=== PATIENT | male | born 1965 | race Caucasian/White ===

== ENCOUNTER 2019-09-13 18:44 | Inpatient (IN) | payer OTHER, MEDICAID ==
[~2019-09-13] VITALS: Ht 182.9 cm; Wt 124.7 kg
--- NOTE | 2019-09-13 18:44 | NUR ---
Patient BIBA ALS, transferred to bed 9. RN evaluating patient at bedside.
[2019-09-13 18:50] VITALS: BP 127/87
--- NOTE | 2019-09-13 18:57 | NUR ---
RADIOLOGY AT BEDSIDE
[2019-09-13] MEDS ORDERED: NITROGLYCERIN 0.4 MG TAB SL ONE (19:30)
[2019-09-13] MEDS ORDERED: ASPIRIN 325 MG TAB PO ONE (19:30)
--- NOTE | 2019-09-13 19:39 | NUR ---
PT REFUSED NITRO AND ASPIRIN. STATES "I'M ON A 9/10 PAIN AND YOU'RE GOING TO GIVE ME THAT? I DONT FUCKING WANT IT." ERMD MADE AWARE.
--- NOTE | 2019-09-13 19:40 | NUR ---
54 Y/O MALE C/O CHEST PAIN x FEW HRS. RATES PAIN 8/10 AND DESCRIBES IT STINGING, PRESSURE AND IS NONRADIATING. VSS. NO SOB, NO DIAPHORESIS. a&OX4. NO EDEMA PRESENT. CAP REFILL < 3. ALLERGIES: PERMETHRIN, NUCLEAR MED. PMH: HTN, CHF, ANGIOGRAM.
[2019-09-13 20:36] LABS: BASOPHILS # (AUTO) 0.1 K/uL (0.00-0.22); BASOPHILS % (AUTO) 1.2 % (0.0-2.0); EOSINOPHILS # (AUTO) 0.1 K/uL (0-0.4); HEMATOCRIT 38.3 % (36-52); HEMOGLOBIN 12.7 g/dL (12.0-18.0); LYMPHOCYTES # (AUTO) 2.6 K/uL (2.0-11.5); LYMPHOCYTES % (AUTO) 40.8 % (20.5-51.1); MEAN CORPUSCULAR HEMOGLOBIN 30 pg (27-31); MEAN CORPUSCULAR HGB CONC 33 g/dL (33-37); MEAN CORPUSCULAR VOLUME 90.9 fL (80-94); MONOCYTES # (AUTO) 0.6 K/uL (0.8-1.0); MONOCYTES % (AUTO) 8.7 % (1.7-9.3); NEUTROPHILS % (AUTO) 47.3 % (42.2-75.2); PLATELET COUNT (AUTO) 347 K/uL (140-450); RED BLOOD CELL COUNT(AUTO) 4.22 MIL/uL (4.20-6.10); RED CELL DISTRIBUTION WIDTH 14.5 % (11.6-13.7); WHITE BLOOD COUNT (AUTO) 6.3 K/uL (4.8-10.8)
[2019-09-13] MEDS ORDERED: ONDANSETRON 4 MG/2 ML VIAL IVP ONE (20:45)
[2019-09-13] MEDS ORDERED: MORPHINE SULFATE 4 MG/ML SYR IVP ONE (20:45)
[2019-09-13 20:48] LABS: ALBUMIN 2.9 g/dL (3.4-5.0); ANION GAP 8.4 (8-16); CARBON DIOXIDE 31.2 mmol/L (21-32); CREATININE 0.8 mg/dL (0.6-1.3); POTASSIUM 3.6 mmol/L (3.5-5.1); TOTAL BILIRUBIN 0.2 mg/dL (0.0-1.0)
[2019-09-13 20:49] LABS: PROTHROMBIN TIME 10.6 secs (10.8-13.4)
--- NOTE | 2019-09-13 21:21 | NUR ---
PT AMBULATED TO BATHROOM. STEADY GAIT.
[2019-09-13] MEDS ORDERED: HYDROcodone/APAP 7.5/325 MG 1 TAB PO PRN (21:30)
[2019-09-13] MEDS ORDERED: ONDANSETRON 4 MG/2 ML VIAL IVP PRN (21:30)
[2019-09-13] MEDS ORDERED: ACETAMINOPHEN 325 MG TAB PO PRN (21:30)
[2019-09-13] MEDS ORDERED: DIVA500E1 PO (21:46)
[2019-09-13] MEDS ORDERED: TRAZ-343 PO (21:46)
[2019-09-13] MEDS ORDERED: ASPI81EC98 PO (21:46)
[2019-09-13] MEDS ORDERED: ATOR20TA PO (21:46)
[2019-09-13] MEDS ORDERED: LISI-420 PO (21:46)
[2019-09-13] MEDS ORDERED: ORE25 PO (21:46)
--- NOTE | 2019-09-13 22:10 | NUR ---
Patient will be admitted to care of DR. DOVER. Admited to TELE. Will go to room 111B. Belongings list completed. Report to MORA GUZMAN.
--- NOTE | 2019-09-13 22:10 | NUR ---
RECEIVED BEDSIDE REPORT FROM ED NURSE KIKE. PATIENT WAS BROUGHT INTO UNIT VIA GURNEY. PATIENT IS AMBULATORY. NO SOB OR DISTRESS NOTED. ON ROOM AIR. IV ACCESS ON LEFT HAND 24 GAUGE, PATENT, INTACT AND INFUSING WELL. SKIN IS INTACT. INITIAL ASSESSMENT DONE. INITIAL VITAL SIGNS TAKEN. MRSA SWAB DONE AND SENT TO LAB. PATIENT ORIENTED TO ROOM. BED IN LOW, BED LOCKED. SAFETY MEASURES IN PLACE. BELONGINGS LIST SIGNED. CALL LIGHT PLACED WITHIN PATIENT REACH. WILL CONTINUE TO MONITOR PATIENT.
[2019-09-13 23:04] LABS: FREE T4 (FREE THYROXINE) 0.93 ng/dL (0.76-1.46); PHOSPHORUS 4.4 mg/dL (2.5-4.9); THYROID STIMULATING HORMONE 2.15 uIU/mL (0.34-3.74)
[2019-09-13] MEDS: NACL 0.9% 1,000 ML IV SCH (23:15)
[2019-09-13 23:23] LABS: APPEARANCE,URINE CLEAR (CLEAR); BILIRUBIN,URINE NEGATIVE (NEGATIVE); BLOOD, URINE NEGATIVE (NEGATIVE); COLOR,URINE YELLOW (YELLOW); LEUKOCYTE ESTERASE ,URINE NEGATIVE (NEGATIVE); NITRITE, URINE NEGATIVE (NEGATIVE); UGLUCOSE NEGATIVE (NEGATIVE)
[2019-09-13 23:54] LABS: BARBITURATE, URINE NEGATIVE ng/ml (NEG <=200); BENZODIAZEPINE, URINE POSITIVE ng/mL (NEG <=200); CANNABINOID, URINE NEGATIVE ng/mL (NEG <=50); COCAINE, URINE NEGATIVE ng/mL (NEG <=300); OPIATE, URINE POSITIVE ng/mL (NEG <=2000); PHENCYCLIDINE SCREEN,URINE NEGATIVE ng/mL (NEG <=25)
[2019-09-14 00:15] VITALS: BP 112/81
--- NOTE | 2019-09-14 00:15 | NUR ---
VITALS TAKEN AT THIS TIME. VISIBLE CHEST RISE AND FALL NOTED. CALL LIGHT PLACED WITHIN PATIENT REACH. WILL CONTINUE TO MONITOR PATIENT.
--- NOTE | 2019-09-14 00:45 | NUR ---
PRN NORCO GIVEN PER PATIENT REQUEST FOR MODERATED PAIN. WILL CONTINUE TO MONITOR PATIENT.
[2019-09-14] MEDS ORDERED: HYDROcodone/APAP 10/325 MG 1 TAB TAB PO PRN (02:50)
--- NOTE | 2019-09-14 03:16 | NUR ---
ROUNDS DONE. VISIBLE CHEST RISE AND FALL NOTED. CALL LIGHT WITHIN PATIENT REACH. WILL CONTINUE TO MONITOR PATIENT.
--- NOTE | 2019-09-14 04:05 | NUR ---
VITALS TAKEN AT THIS TIME. NO SOB OR DISTRESS NOTED. CALL LIGHT WITHIN PATIENT REACH. WILL CONTINUE TO MONITOR PATIENT.
[2019-09-14 04:08] VITALS: BP 137/87
[2019-09-14] MEDS: HYDROcodone/APAP 10/325 MG 1 TAB TAB PO PRN ×2 (04:39→12:03)
--- NOTE | 2019-09-14 04:39 | NUR ---
PRN NORCO GIVEN AT THIS TIME FOR SEVERE PAIN PER PATIENT REQUEST. WILL CONTINUE TO MONITOR PATIENT.
[2019-09-14 06:12] LABS: BASOPHILS # (AUTO) 0.1 K/uL (0.00-0.22); EOSINOPHILS # (AUTO) 0.2 K/uL (0-0.4); HEMATOCRIT 36.8 % (36-52); HEMOGLOBIN 12.3 g/dL (12.0-18.0); LYMPHOCYTES # (AUTO) 2.7 K/uL (2.0-11.5); LYMPHOCYTES % (AUTO) 45.9 % (20.5-51.1); MEAN CORPUSCULAR HEMOGLOBIN 30 pg (27-31); MEAN CORPUSCULAR HGB CONC 34 g/dL (33-37); MEAN CORPUSCULAR VOLUME 90.6 fL (80-94); MONOCYTES # (AUTO) 0.5 K/uL (0.8-1.0); MONOCYTES % (AUTO) 8.7 % (1.7-9.3); NEUTROPHILS # (AUTO) 2.4 K/uL (1.8-7.7); NEUTROPHILS % (AUTO) 40.4 % (42.2-75.2); PLATELET COUNT (AUTO) 356 K/uL (140-450); RED BLOOD CELL COUNT(AUTO) 4.06 MIL/uL (4.20-6.10); WHITE BLOOD COUNT (AUTO) 5.9 K/uL (4.8-10.8)
--- NOTE | 2019-09-14 06:50 | NUR ---
PATIENT IN STABLE CONDITION. VISIBLE CHEST RISE AND FALL NOTED. CALL LIGHT WITHIN PATIENT REACH. WILL ENDORSE TO AM SHIFT NURSE FOR CONTINUITY OF CARE.
--- NOTE | 2019-09-14 07:05 | NUR ---
RECEIVED BEDSIDE REPORT FROM NIGHTSHIFT NURSE. PT RESTING IN BED. ABLE TO MAKE NEEDS KNOWN. RESPIRATIONS EVEN AND UNLABORED WITH NO SOB OR RESPIRATORY DISTRESS. SKIN WARM AND DRY TO TOUCH. IV SITE IN LEFT HAND 24G IS CLEAN, DRY, AND INTACT. SAFETY MEASURES IN PLACE. WILL CONTINUE TO MONITOR
[2019-09-14 07:17] LABS: CHOL/HDL RATIO 3.7 (1-4.5); MAGNESIUM 2.1 mg/dL (1.8-2.4)
[2019-09-14 07:26] LABS: ANION GAP 12.4 (8-16); CARBON DIOXIDE 27.3 mmol/L (21-32); CREATININE 0.9 mg/dL (0.6-1.3); POTASSIUM 3.7 mmol/L (3.5-5.1)
[2019-09-14] MEDS ORDERED: NITROGLYCERIN 0.4 MG TAB SL PRN (07:45)
[2019-09-14] MEDS: MORPHINE SULFATE 2 MG/ML SYR IVP PRN ×3 (07:54→20:05)
--- NOTE | 2019-09-14 07:54 | NUR ---
PT CALLED AND COMPLAINED OF SEVERE PAIN. PRN PAIN MEDICATION ADMINISTERED PRESCRIBED PER MD ORDER. MEDICATION EDUCATION PERFORMED. PT VERBALIZED UNDERSTANDING. SAFETY MEASURES IN PLACE. WILL CONTINUE TO MONITOR
[2019-09-14 08:00] VITALS: BP 135/87
[2019-09-14] MEDS: DOCUSATE SODIUM 100 MG GELCAP PO SCH ×2 (08:36→20:04)
[2019-09-14] MEDS: METOPROLOL 25 MG TAB PO SCH ×3 (08:36→21:54)
[2019-09-14] MEDS: ECOTRIN 81 MG TABEC PO SCH (08:36)
[2019-09-14] MEDS: HYDROCHLOROTHIAZIDE 25 MG TAB PO SCH (08:37)
[2019-09-14] MEDS: DIVALPROEX 500 MG TABEC PO SCH ×2 (08:38→21:55)
[2019-09-14] MEDS: LISINOPRIL 20 MG TAB PO SCH (08:38)
[2019-09-14] MEDS: ATORVASTATIN 20 MG TAB PO SCH (08:39)
--- NOTE | 2019-09-14 08:46 | NUR ---
ADMINISTERED SCHED MED PRESCRIBED PER MD ORDER. PT TOLERATED WELL. MEDICATION EDUCATION PERFORMED. PT VERBALIZED UNDERSTANDING. SAFETY MEASURES IN PLACE. WILL CONTINUE TO MONITOR
--- NOTE | 2019-09-14 08:48 | NUR ---
PATIENT HAS BEEN SCREENED AND CATEGORIZED MODERATE NUTRITION RISK. PATIENT WILL BE SEEN WITHIN 3-5 DAYS OF ADMISSION. 09/16/19 09/18/[address]
[2019-09-14] MEDS: NICOTINE TRANSD SYS 14 MG/24 HR PATCH TD SCH (09:00)
--- NOTE | 2019-09-14 11:57 | NUR ---
Drop Worker Note: Basic Screen: Yes High Risk DC Screen [place]: NICOLE Tom Tel: N/A Relationship: BROTHER Pre-Admission Living Arrangements: Lives with Other Other: ROOMMATES Prior ADL Independent Current Home Health Name/Tel: N/A Current DME/02 Name/Tel: N/A Current Hospice Name/Tel: N/A Current Dialysis Name/Tel: N/A Healthcare Decision Maker: Patient Advance Directive No Physician Orders for Life Sustaining Treatment Form No Patient/Family Have Educational Needs No Information Taught: Community Resources Person Taught: Patient Teaching Tools: Community Resources Verbal Factors Affecting Learning: None Participation Level: Active Evaluation: Verbalizes Understanding Needs Additional Education: No Discipline: Case Mgt/Social Svcs Tentative Discharge Plan/Destination: No Needs Identified Will require assistance post discharge: No Referred to Hair Colorist: No Tentative Discharge Plan Summary: Patient is a 54-year-old male admitted for chest pain. Patient has PMHX of CHF and hypertension. Patient was admitted from home where he lives with roommates. SW met with patient at bedside to verify demographics. Patient stated that he lives with roommates and is independent with all ADLs. Patient denied mental health history but reported methamphetamine use. SW provided patient with subtance abuse resources. Patient stated that he would arrange for rehabilitation. SW offered assistance but patient refused. Tentative discharge plan is for patient to return home and look into substance abuse rehab facilities. Signature: TARA Leal Date: Sep 14, 2019 Time: 11:42
[2019-09-14 12:00] VITALS: BP 119/64
--- NOTE | 2019-09-14 12:03 | NUR ---
PT CALLED AND COMPLAINED OF MODERATE PAIN. PRN PAIN MEDICATION ADMINISTERED PRESCRIBED PER MD ORDER. MEDICATION EDUCATION PERFORMED. PT VERBALIZED UNDERSTANDING. SAFETY MEASURES IN PLACE. WILL CONTINUE TO MONITOR
[2019-09-14] MEDS ORDERED: CALCIUM ACETATE 667 MG TAB PO SCH (13:15)
--- NOTE | 2019-09-14 13:15 | NUR ---
HOURLY ROUNDING. PT RESTING IN BED. ABLE TO MAKE NEEDS KNOWN. RESPIRATIONS EVEN AND UNLABORED WITH NO SOB OR RESPIRATORY DISTRESS. SKIN WARM AND DRY TO TOUCH. SAFETY MEASURES IN PLACE. WILL CONTINUE TO MONITOR
[2019-09-14] MEDS ORDERED: CRUSHER, PILL MC ONE (14:00)
--- NOTE | 2019-09-14 15:19 | NUR ---
ENDORSED AT BEDSIDE WITH DAYSHIFT NURSE RENE. PT RESTING IN BED. ABLE TO MAKE NEEDS KNOWN. RESPIRATIONS EVEN AND UNLABORED WITH NO SOB OR RESPIRATORY DISTRESS. SKIN WARM AND DRY TO TOUCH. SAFETY MEASURES IN PLACE. WILL CONTINUE TO MONITOR
--- NOTE | 2019-09-14 15:20 | NUR ---
RECEIVED PT. FROM DAY SHIFT NURSE, ABDULKADIR. PT. IS ALERT AND IN BED. IV ON THE LEFT HAND 24G NS TKO. PT. IS ON ROOM AIR WITH O2 STAT OF 97%. NO SIGNS OF DISTRESS NOTED. PT. IS AMBULATORY. CALL LIGHT WITHIN REACH. WILL CONTINUE TO MONITOR.
[2019-09-14 16:00] VITALS: BP 135/87
--- NOTE | 2019-09-14 19:20 | NUR ---
ENDORSED PT. TO VEGETABLE WASHER NURSE, TROY, FOR CONTINUITY OF CARE.
[2019-09-14 20:00] VITALS: BP 135/85
--- NOTE | 2019-09-14 20:05 | NUR ---
GIVEN COLACE AD MD ORDERED. PT C/O 02/27 PAIN, GIVEN MORPHINE MD ORDERED. PT TOLERATED WELL.
[2019-09-14] MEDS ORDERED: traZODone 50 MG TAB PO SCH (21:00)
[2019-09-14] MEDS: NACL 0.9% 1,000 ML IV SCH (21:55)
--- NOTE | 2019-09-14 22:22 | NUR ---
PT SLEEPING IN BED COMFORTABLY. NO ACUTE DISTRESS NOTED.
[2019-09-15] VITALS: BP 127/76
--- NOTE | 2019-09-15 00:05 | NUR ---
VS CHECKED, WITHIN PT'S BASELINE, WILL CONTINUE TO MONITOR.
[2019-09-15] MEDS: MORPHINE SULFATE 2 MG/ML SYR IVP PRN ×2 (02:32→09:55)
--- NOTE | 2019-09-15 02:32 | NUR ---
PT C/O 02/27 PAIN, GIVEN MORPHINE MD ORDERED. PT TOLERATED WELL. Addendum: 09/15/19 at 0332 by Sachin Duque RN SCANNER DID NOT WORK, PUT IT MANUALLY.
[2019-09-15 04:00] VITALS: BP 118/67
--- NOTE | 2019-09-15 04:04 | NUR ---
VS CHECKED, WITHIN PT'S BASELINE. WILL CONTINUE TO MONITOR.
--- NOTE | 2019-09-15 06:58 | NUR ---
PT IN STABLE CONDITION. WILL ENDORSE TO DAY SHIFT NURSE FOR CONTINUOUS CARE.
[2019-09-15 07:22] LABS: BASOPHILS # (AUTO) 0.1 K/uL (0.00-0.22); BASOPHILS % (AUTO) 0.8 % (0.0-2.0); EOSINOPHILS # (AUTO) 0.2 K/uL (0-0.4); EOSINOPHILS % (AUTO) 3.4 % (0.0-4.0); HEMOGLOBIN 12.6 g/dL (12.0-18.0); LYMPHOCYTES # (AUTO) 2.4 K/uL (2.0-11.5); LYMPHOCYTES % (AUTO) 35.3 % (20.5-51.1); MEAN CORPUSCULAR HEMOGLOBIN 30 pg (27-31); MEAN CORPUSCULAR HGB CONC 33 g/dL (33-37); MEAN CORPUSCULAR VOLUME 90.1 fL (80-94); MONOCYTES # (AUTO) 0.6 K/uL (0.8-1.0); MONOCYTES % (AUTO) 8.3 % (1.7-9.3); NEUTROPHILS # (AUTO) 3.6 K/uL (1.8-7.7); NEUTROPHILS % (AUTO) 52.2 % (42.2-75.2); PLATELET COUNT (AUTO) 334 K/uL (140-450); RED BLOOD CELL COUNT(AUTO) 4.22 MIL/uL (4.20-6.10); RED CELL DISTRIBUTION WIDTH 14.4 % (11.6-13.7); WHITE BLOOD COUNT (AUTO) 6.8 K/uL (4.8-10.8)
--- NOTE | 2019-09-15 07:25 | NUR ---
RECEIVED PT FROM HEALTHCARE LIAISON FOR CONTINUITY OF CARE. PT IS AAOX4, ABLE TO MAKE NEEDS KNOWN. IV ON THE LEFT HAND 24G NS TKO. PT IS RA SATING 95%. NO SIGNS OF DISTRESS NOTED. PT IS AMBULATORY. DISCUSSED POC WITH PT AND PT VERBALIZED UNDERSTANDING. SAFETY MEASURES IN PLACE. WILL ROUND FREQUENTLY THROUGHOUT THE SHIFT.
[2019-09-15 07:33] LABS: ANION GAP 8.9 (8-16); CARBON DIOXIDE 31.1 mmol/L (21-32); CREATININE 0.9 mg/dL (0.6-1.3)
[2019-09-15 07:39] LABS: MAGNESIUM 2.1 mg/dL (1.8-2.4); PHOSPHORUS 4.2 mg/dL (2.5-4.9)
[2019-09-15] MEDS: METOPROLOL 25 MG TAB PO SCH ×2 (09:00→09:56)
[2019-09-15] MEDS: DOCUSATE SODIUM 100 MG GELCAP PO SCH (09:00)
[2019-09-15] MEDS: ATORVASTATIN 20 MG TAB PO SCH ×2 (09:00→09:56)
[2019-09-15] MEDS: ECOTRIN 81 MG TABEC PO SCH ×2 (09:00→09:56)
[2019-09-15] MEDS ORDERED: NITR0.4T2 SL (09:00)
[2019-09-15] MEDS: NICOTINE TRANSD SYS 14 MG/24 HR PATCH TD SCH (09:00)
--- NOTE | 2019-09-15 09:12 | NUR ---
PT BECAME VERY AGITATED WHEN ATTEMPTING TO GIVE MORNING MEDS. I LEFT PT ROOM AND CALLED SECURITY TO ESCORT ME IN WITH PT.
--- NOTE | 2019-09-15 09:24 | NUR ---
ADMIN MORNING MEDS TO PT. PT TOLERATED WELL. ALL NEEDS MET. WILL CONTINUE TO ROUND ON PT.
[2019-09-15] MEDS: DIVALPROEX 500 MG TABEC PO SCH (09:55)
[2019-09-15] MEDS: HYDROCHLOROTHIAZIDE 25 MG TAB PO SCH (09:56)
[2019-09-15] MEDS: LISINOPRIL 20 MG TAB PO SCH (09:57)
--- NOTE | 2019-09-15 12:00 | NUR ---
PT DISCHARGED FOR SELF CARE. PT STATED HE IS GOING TO [facility] IN [place]. PT GIVEN BUS PASS. PT SIGNED ALL DISCHARGE PAPERWORK. IV REMOVED WITH TIP INTACT. PT HOME MEDS GIVEN TO PT UPON D/C. EARLY LUNCH GIVEN TO PT TO TAKE WITH HIM. TELE BOX REMOVED. PT TOOK ALL PERSONAL BELONGINGS WITH HIM. PT ESCORTED OUT TO FRONT OF HOSPITAL AND DIRECTED TOWARDS THE BUS STOP. PT LEFT IN STABLE CONDITION.
== END 2019-09-15 12:00 | disposition home or self-care (01) | DRG 880 ==
LOC: MED 18:44 → MTU 21:28
PROVIDERS: ADMIT General Practice; ATTEND General Practice
DX: F41.9 Anxiety disorder, unspecified (principal); E44.0 Moderate protein-calorie malnutrition; I20.9 Angina pectoris, unspecified; Z68.37 Body mass index [BMI] 37.0-37.9, adult; E66.9 Obesity, unspecified; I11.0 Hypertensive heart disease with heart failure; F31.9 Bipolar disorder, unspecified; F17.210 Nicotine dependence, cigarettes, uncomplicated; G47.00 Insomnia, unspecified; E83.39 Other disorders of phosphorus metabolism; F11.10 Opioid abuse, uncomplicated; F13.10 Sedative, hypnotic or anxiolytic abuse, uncomplicated; I07.1 Rheumatic tricuspid insufficiency; F14.10 Cocaine abuse, uncomplicated; I50.9 Heart failure, unspecified; Z71.3 Dietary counseling and surveillance; Z88.8 Allergy status to other drugs, medicaments and biological substances; Z79.899 Other long term (current) drug therapy; Z82.49 Family history of ischemic heart disease and other diseases of the circulatory system; Z90.49 Acquired absence of other specified parts of digestive tract; Z79.82 Long term (current) use of aspirin; Z71.6 Tobacco abuse counseling; Z71.51 Drug abuse counseling and surveillance of drug abuser
CPT/HCPCS: 36415; 71045; 80048; 80053; 80305; 81003; 82150; 83036; 83690; 83735; 83880; 84100; 84439; 84443; 84484; 85025; 85610; 85730; 87081; 93005; 96374; 99285; J1644; J2270; J2405; J7030; Q0092

== ENCOUNTER 2021-04-12 04:52 | Inpatient (IN) | payer OTHER, MEDICAID, SELFPAY ==
[~2021-04-12] VITALS: Ht 182.9 cm; Wt 127.9 kg
[~2021-04-12 04:52] MED LIST: ASPI81EC98 PO; ATOR20TA PO; DIVA500E1 PO; HYDR-4004 PO; LISI-487 PO; NITR0.4T2 SL; TRAZ-343 PO
[2021-04-12 05:06] VITALS: BP 129/89
[2021-04-12] MEDS ORDERED: ONDANSETRON 4 MG ODT PO ONE ×2 (05:10→07:00)
[2021-04-12] MEDS ORDERED: diazePAM 5 MG TAB PO ONE (05:10)
[2021-04-12] MEDS ORDERED: DICYCLOMINE HCL LIQUID 20 MG, ALUMINUM HYD/MAG/SIMETHICONE 30 ML, LIDOCAINE VISCOUS 2% ... PO ONE ×3 (05:10)
--- NOTE | 2021-04-12 05:19 | NUR ---
56 yo m biba found in parking lot across the [address] from [facility], states pt was driving down from [place] when 01/27 radiating to left shoulder pressure-like chest pain began x12pm. +n/v x3days. pain with respirations, denies sob. denies diarrhea, chills, and fever. pt is labile- tearful, happy, upset. hx:bipolar, htn, anxiety, heart issues rx:lisinopril, depakote, asa, trazadone, heart meds, atorvastatin allerg:zofran, nuclear dye, permethrin
--- NOTE | 2021-04-12 05:20 | NUR ---
ATTEMPTED TO DRAW LABS, PT STATED HE WANTED TO WAIT A LITTLE WHILE.
[2021-04-12] MEDS ORDERED: ALUMINUM HYD/MAG/SIMETHICONE 30 ML UDC ONE (05:32)
[2021-04-12] MEDS ORDERED: DICYCLOMINE HCL LIQUID 10 MG/5 ML UDC ONE (05:36)
--- NOTE | 2021-04-12 05:52 | NUR ---
during med pass pt began crying hysterically. med pass held per pt until he is ready.
--- NOTE | 2021-04-12 06:06 | NUR ---
pt ambulated to with limb.
--- NOTE | 2021-04-12 06:10 | NUR ---
PT BACK IN ROOM FROM RR. PT IS BEING AGGRESSIVE, PACING ROOM. ASKED WHAT WAS WRONG PT STATED IT DOESNT MATTER AND PROCEEDED TO DRINK WATER FROM THE SINK.
--- NOTE | 2021-04-12 06:30 | NUR ---
ASKED PT IF HE FELT READY FOR A BLOOD DRAW, STATED HE WANTS TO WAIT A LITTLE LONGER.
[2021-04-12] MEDS ORDERED: ACETAMINOPHEN EXTRA STRENGTH 500 MG TAB PO ONE (06:35)
--- NOTE | 2021-04-12 06:35 | NUR ---
PT APOLOGIZED FOR HIS BEHAVIOR. STATED HE HAS CHEST PAIN 7/10 AND WOULD LIKE TYLENOL. ERMD MADE AWARE.
--- NOTE | 2021-04-12 06:55 | NUR ---
CALLED LAB ASKED IF THEY COULD TRY DRAWING PT'S LAB, STATED SHE WAS BUSY.
--- NOTE | 2021-04-12 06:58 | NUR ---
PT BEGAN YELLING HE CANT BREATH AND BEGAN VOMITTING CLEAR FLUID. PT WAS ABLE TO TALK AND HOLD A CONVERSATION, 02 SAT 98%. SMALL BLOOD STREAK IN EMESIS BAG. ERMD MADE AWARE.
--- NOTE | 2021-04-12 07:00 | NUR ---
PT STATED HE WAS VOMITING D/T DRINKING ALCOHOL WITH HIS FRIENDS.
[2021-04-12] MEDS ORDERED: METOCLOPRAMIDE 10 MG TAB PO ONE (07:10)
--- NOTE | 2021-04-12 07:17 | NUR ---
LAB AT BEDSIDE.
--- NOTE | 2021-04-12 07:32 | NUR ---
Pt report given to MORA CAMERON. Transfer of care at this time.
--- NOTE | 2021-04-12 07:32 | NUR ---
RECEIVED REPORT FROM WOOD VELAZCO, ASSUMED CARE AT THIS TIME.
[2021-04-12 07:34] LABS: BASOPHILS # (AUTO) 0.1 K/uL (0.00-0.22); BASOPHILS % (AUTO) 0.8 % (0.0-2.0); EOSINOPHILS # (AUTO) 0.1 K/uL (0-0.4); EOSINOPHILS % (AUTO) 1.5 % (0.0-4.0); HEMOGLOBIN 12.6 g/dL (12.0-18.0); LYMPHOCYTES # (AUTO) 1.5 K/uL (2.0-11.5); LYMPHOCYTES % (AUTO) 19.7 % (20.5-51.1); MEAN CORPUSCULAR HEMOGLOBIN 30 pg (27-31); MEAN CORPUSCULAR HGB CONC 33 g/dL (33-37); MEAN CORPUSCULAR VOLUME 91.2 fL (80-94); MONOCYTES # (AUTO) 0.7 K/uL (0.8-1.0); MONOCYTES % (AUTO) 8.8 % (1.7-9.3); NEUTROPHILS # (AUTO) 5.1 K/uL (1.8-7.7); NEUTROPHILS % (AUTO) 69.2 % (42.2-75.2); PLATELET COUNT (AUTO) 372 K/uL (140-450); RED BLOOD CELL COUNT(AUTO) 4.17 MIL/uL (4.20-6.10); RED CELL DISTRIBUTION WIDTH 14.4 % (11.6-13.7); WHITE BLOOD COUNT (AUTO) 7.4 K/uL (4.8-10.8)
[2021-04-12 08:08] LABS: ALBUMIN 3.2 g/dL (3.4-5.0); ANION GAP 13.6 (8-16); CARBON DIOXIDE 23.4 mmol/L (21-32); TOTAL BILIRUBIN 0.3 mg/dL (0.0-1.0)
--- NOTE | 2021-04-12 08:30 | NUR ---
PATIENT PROVIDED WITH URINAL
[2021-04-12] MEDS ORDERED: ASPIRIN 325 MG TAB PO ONE (08:35)
--- NOTE | 2021-04-12 09:04 | NUR ---
PATIENT AMBULATED TO RESTROOM WITH STEADY GAIT.
[2021-04-12] MEDS ORDERED: ZOLPIDEM 5 MG TAB PO PRN (09:30)
[2021-04-12] MEDS ORDERED: DOCUSATE SODIUM 100 MG GELCAP PO PRN (09:30)
[2021-04-12] MEDS ORDERED: ACETAMINOPHEN 325 MG TAB PO PRN (09:30)
[2021-04-12] MEDS ORDERED: NITROGLYCERIN 0.4 MG TAB SL PRN (09:30)
[2021-04-12] MEDS ORDERED: MAG SULF 2000 MG/WATER PREMIX 50 ML IV PRN (09:35)
[2021-04-12] MEDS ORDERED: POTASSIUM CHLORIDE 10 MEQ TABER PO PRN (09:35)
--- NOTE | 2021-04-12 10:30 | NUR ---
PT REQUESTING PSYCH EVALUATION. PT REPORTING THOUGHTS OF HARMING HIMSELF AND OTHERS. PT REPORTS PREVIOUS SUICIDE ATTEMPTS. PT MOVED TO ER BED 7 FOR SI/HI PRECAUTIONS PENDING PSYCH EVALUATION. DR SEPULVEDA MADE AWARE. RECEIVED VERBAL ORDER FOR PSYCH EVAL
[2021-04-12] MEDS: NACL 0.9% 1,000 ML IV SCH (10:45)
--- NOTE | 2021-04-12 10:46 | NUR ---
MIR SWAB COLLECTED AND WALKED TO LAB.
[2021-04-12 10:47] LABS: BILIRUBIN,URINE NEGATIVE (NEGATIVE); BLOOD, URINE TRACE-I (NEGATIVE); COLOR,URINE YELLOW (YELLOW); LEUKOCYTE ESTERASE ,URINE NEGATIVE (NEGATIVE); NITRITE, URINE NEGATIVE (NEGATIVE); UGLUCOSE NEGATIVE (NEGATIVE)
[2021-04-12 10:56] LABS: APPEARANCE,URINE SLIGHTLY HAZY (CLEAR)
[2021-04-12 11:05] LABS: RBC,URINE 0-5 /HPF (0-5); WBC,URINE NONE SEEN /HPF (0-5)
[2021-04-12 11:21] LABS: PROTHROMBIN TIME 9.3 secs (10.8-13.4)
[2021-04-12 11:24] LABS: CHOL/HDL RATIO 2.8 (1-4.5); MAGNESIUM 2.5 mg/dL (1.8-2.4); PHOSPHORUS 3.8 mg/dL (2.5-4.9); THYROID STIMULATING HORMONE 3.94 uIU/mL (0.34-3.74)
[2021-04-12] MEDS: MORPHINE SULFATE 2 MG/ML SYR IVP PRN (11:28)
[2021-04-12 11:36] LABS: BARBITURATE, URINE NEGATIVE ng/ml (NEG <=200); BENZODIAZEPINE, URINE NEGATIVE ng/mL (NEG <=200); CANNABINOID, URINE NEGATIVE ng/mL (NEG <=50); COCAINE, URINE NEGATIVE ng/mL (NEG <=300); OPIATE, URINE NEGATIVE ng/mL (NEG <=2000); PHENCYCLIDINE SCREEN,URINE NEGATIVE ng/mL (NEG <=25)
--- NOTE | 2021-04-12 14:47 | NUR ---
PSYCH IS EVALUATING PT THROUGH TELEPSYCH AT THIS TIME
[2021-04-12] MEDS ORDERED: LORazepam 2 MG/ML VIAL IM STA (15:06)
--- NOTE | 2021-04-12 15:08 | NUR ---
PT STARTING TO YELL AND STARTING TO THREATEN STAFF MEMBERS AT THIS TIME. SECURITY WAS CALLED.
--- NOTE | 2021-04-12 15:09 | NUR ---
[place] [employer] AT BEDSIDE
[2021-04-12] MEDS ORDERED: OLANZapine 10 MG VIAL IM ONE (15:10)
--- NOTE | 2021-04-12 15:10 | NUR ---
PT PLACED ON 5150 HOLD FOR DANGER TO SELF AND DANGER TO OTHERS BY [place] [employer]. 1:[address]
[2021-04-12] MEDS ORDERED: WATER STERILE 10 ML MC ONE (15:13)
[2021-04-12] MEDS: LORazepam 2 MG/ML VIAL IM/IVP PRN ×2 (15:29→15:30)
--- NOTE | 2021-04-12 19:40 | NUR ---
PT APPERS TO BE RESTING W EYES CLOSED, L LATERAL POSITION, HOB SLIGHTLY ELEVATED, BLANKET ON. BREATHING EVEN AND UNLABORED. NAD NOTED, WILL CONTINUE TO MONITOR.
--- NOTE | 2021-04-12 20:02 | NUR ---
CALLED MORA GUTIERREZ TO GIVE REPORT. PER MORA GUTIERREZ UNABLE TO RECEIVE REPORT AT THIS TIME.
--- NOTE | 2021-04-12 20:40 | NUR ---
RECEIVED REPORT FROM LORI YIP RN FOR ADMIT TO [facility] ROOM 109 ON 992. WILL AWAIT PATIENT ARRIVAL.
--- NOTE | 2021-04-12 20:42 | NUR ---
Pt report given to MORA GUTIERREZ. Transfer of care at this time.
[2021-04-12] MEDS ORDERED: DIVALPROEX 500 MG TABEC PO SCH (21:00)
--- NOTE | 2021-04-12 21:13 | NUR ---
PT REFUSED HEPARIN, EDUCATED PT ON NEED FOR HEPARIN. PT REFUSED.
--- NOTE | 2021-04-12 21:25 | NUR ---
Patient will be admitted to care of DR. SEPULVEDA. Admited toTELEMETRY. Will go to [id number]. Belongings list completed. Report to MORA GUTIERREZ.
--- NOTE | 2021-04-12 21:40 | NUR ---
RECEIVED PATIENT FROM ED THEODORA VELAZCO FOR ADMIT TO [facility] ROOM 109. PATIENT ARRIVED AAOX4 WITH NO APPARENT S/S OF ACUTE DISTRESS. BREATHING EVEN AND UNLABORED ON RA. NO C/O CP, SOB OR PAIN. 1:1 SITTER AT BEDSIDE WITH ALL SAFETY HAZARDS REMOVED FROM ROOM. POC AND WHITE COMMUNICATION BOARD UPDATED. BED IN LOW/LOCKED POSITION. CALL LIGHT WITHIN REACH. PT/SITTER ENCOURAGED TO CALL FOR ANY NEEDS/ASSISTANCE. WILL CONTINUE TO MONITOR.
[2021-04-12] MEDS: DIVALPROEX 500 MG TABEC PO SCH (21:43)
[2021-04-12] MEDS: traZODone 50 MG TAB PO SCH (21:43)
[2021-04-12] MEDS: METOPROLOL 25 MG TAB PO SCH (21:44)
[2021-04-12 22:00] VITALS: BP 121/82
[2021-04-13] VITALS: BP 108/60
[2021-04-13] MEDS ORDERED: LORazepam 2 MG/ML VIAL IVP PRN (00:05)
[2021-04-13] MEDS: NACL 0.9% 1,000 ML IV SCH ×2 (02:10→18:15)
[2021-04-13 04:00] VITALS: BP 131/83
[2021-04-13] MEDS: MORPHINE SULFATE 2 MG/ML SYR IVP PRN ×4 (04:26→20:59)
[2021-04-13 06:18] LABS: T4 (THYROXINE) 6.8 ug/dL (4.5-12.0)
--- NOTE | 2021-04-13 07:06 | NUR ---
REPORT GIVEN TO GONZALO VELAZCO FOR CONTINUITY OF CARE. PT LAYING DOWN RESTING WITH SITTER AT BEDSIDE. NO APPARENT S/S OF ACUTE DISTRESS. BREATHING EVEN AND UNLABORED. BED IN LOW/LOCKED POSITION. CALL LIGHT WITHIN REACH. ALL NEEDS MET AT THIS TIME.
[2021-04-13 07:08] LABS: BASOPHILS % (AUTO) 0.5 % (0.0-2.0); EOSINOPHILS # (AUTO) 0.2 K/uL (0-0.4); EOSINOPHILS % (AUTO) 4.6 % (0.0-4.0); HEMATOCRIT 36.9 % (36-52); LYMPHOCYTES # (AUTO) 1.5 K/uL (2.0-11.5); LYMPHOCYTES % (AUTO) 32.6 % (20.5-51.1); MEAN CORPUSCULAR HEMOGLOBIN 30 pg (27-31); MEAN CORPUSCULAR HGB CONC 33 g/dL (33-37); MEAN CORPUSCULAR VOLUME 92.9 fL (80-94); MONOCYTES # (AUTO) 0.4 K/uL (0.8-1.0); MONOCYTES % (AUTO) 9.6 % (1.7-9.3); NEUTROPHILS # (AUTO) 2.5 K/uL (1.8-7.7); NEUTROPHILS % (AUTO) 52.7 % (42.2-75.2); PLATELET COUNT (AUTO) 358 K/uL (140-450); RED BLOOD CELL COUNT(AUTO) 3.97 MIL/uL (4.20-6.10); RED CELL DISTRIBUTION WIDTH 14.7 % (11.6-13.7); WHITE BLOOD COUNT (AUTO) 4.7 K/uL (4.8-10.8)
--- NOTE | 2021-04-13 07:27 | NUR ---
PT HAS BEEN ENDORSED BY KINESIOLOGIST NURSE FOR CONTINUITY OF CARE, POC DISCUSSED. PT IS RESTING IN BED WITH NO ACUTE S/S OF DISTRESS. PT IS ON ROOM AIR WITH CHEST RISING AND FALLING EVEN AND UNLABORED. SITTER OUTSIDE ROOM FOR 5150 HOLD. PT ON TELE MONITOR. PT SKIN INTACT. PT HAS A LEFT FA 20G RUNNING NS @60. ALL SAFETY MEASURES IN PLACE CALL LIGHT WITHIN REACH. WILL CONTINUE TO MONITOR.
[2021-04-13 07:41] LABS: ANION GAP 11.3 (8-16); CARBON DIOXIDE 24.6 mmol/L (21-32); CREATININE 0.9 mg/dL (0.6-1.3); POTASSIUM 3.9 mmol/L (3.5-5.1)
[2021-04-13 07:43] LABS: MAGNESIUM 2.4 mg/dL (1.8-2.4)
--- NOTE | 2021-04-13 08:00 | NUR ---
PT REFUSED VITAL SIGNS
--- NOTE | 2021-04-13 08:01 | NUR ---
PT AGITATED AND YELLING IN BED. STATING HE WANTS TO SPEAK WITH A DR AND DOESN'T UNDERSTAND WHY HE IS STILL HERE. INFORMED HIM OF THE 5150 HOLD AND PT BEGAN YELLING STATING HE KNOWS THAT.
[2021-04-13] MEDS: MULTIVITAMIN 1 TAB PO SCH (08:35)
[2021-04-13] MEDS: chlordiazePOXIDE 25 MG CAP PO SCH ×4 (08:35→16:48)
[2021-04-13] MEDS: THIAMINE 100 MG TAB PO SCH (08:35)
[2021-04-13] MEDS: lisinopriL 20 MG TAB PO SCH (08:36)
[2021-04-13] MEDS: ECOTRIN 81 MG TABEC PO SCH (08:36)
[2021-04-13] MEDS: hydroCHLOROthiazide 25 MG TAB PO SCH (08:36)
[2021-04-13] MEDS: FOLIC ACID 1 MG TAB PO SCH (08:36)
[2021-04-13] MEDS: DIVALPROEX 500 MG TABEC PO SCH ×2 (08:36→21:56)
[2021-04-13] MEDS: METOPROLOL 25 MG TAB PO SCH ×2 (08:37→21:00)
[2021-04-13] MEDS: ATORVASTATIN 20 MG TAB PO SCH (08:37)
[2021-04-13] MEDS: HYDROcodone/APAP 5/325 MG 1 TAB TAB PO PRN ×3 (08:43→13:22)
--- NOTE | 2021-04-13 09:09 | NUR ---
PATIENT HAS BEEN SCREENED AND CATEGORIZED MODERATE NUTRITION RISK. PATIENT WILL BE SEEN WITHIN 3-5 DAYS OF ADMISSION. 04/14/21 04/16/[address]
--- NOTE | 2021-04-13 10:58 | NUR ---
NEW IV STARTED IN LEFT HAND 24 G, PATENT AND INTACT. PRN PAIN MEDICATION ADMINISTERED PER ORDER. PT TOLERATED ADMINISTRATION. WILL CONTINUE TO MONITOR.
--- NOTE | 2021-04-13 12:00 | NUR ---
PT REFUSED VITAL SIGNS
--- NOTE | 2021-04-13 12:00 | NUR ---
DC PLANNING LATE ENTRY SW [facility] TO MAKE SURE PATIENT'S 5150 HOLD, CLINICALS PACKET, AND INFORMATION HAS BEEN RECEIVED AND PROCESS FOR PLACEMENT SEARCH TO [facility]. PER LAN NO INFORMATION WAS SEND TO THEM OF TODAY 04/13/21 10:00AM. SW DISCUSS PATIENT'S STATUS AND WILL SEND CLINICAL PACKET. SW CALL THE [facility] TO CONFIRMED THAT PATIENT'S CLINICALS PACKET HAS BEEN SEND AND PROCESS. PER JAI NO PACKET HAS BEEN RECEIVED OF 12:00PM SW WILL RE SEND PACKET TO [facility]. ALSO REQUESTED FOR DOCUMENTATION TO BE LOG IN PATIENT'S CHART ABOUT EFFORTS TO GET HIM PLACED. GIO AGREED AND ENDED THE CALL. Addendum: 04/13/21 at 1730 by Linda Vasquez CM DC PLANNING PATIENT IS A 56 YEAR OLD MALE ADMITTED IN THE [facility]/ED ON A 5150 HOLD DUE TO DTS/DTO AND SI. PT. WAS BROUGHT IN BY P.D OFFICER Haylee OHARA DUE TO PATIENT ATTEMPTING TO CUTTING HIM SELF AND STAFF AND STATING THAT "HE DID NOT WANT TO LIVE ANYMORE" ALDO MET WITH PATIENT AT BEDSIDE, DISCUSS PATIENTS ADMISSION TO THE [facility]/ED UNDER A 5150 HOLD. SW ATTEMPTED TO EXPLAIN TO PATIENT HIS STATUS HOWEVER PATIENT SEEMS UNABLE TO PROCESS INFORMATION, WAS CONFUSED AND UNABLE TO IDENTIFY HIS OWN LOCATION AT PRESENT TIME OF THE MEETING WITH ALDO. PATIENT WAS UNABLE TO ACKNOWLEDGE HIS NEED FOR MENTAL HEALTH SERVICES AND SOME POSSIBLE GRIEVING ISSUES. PATIENT REPORTED STILL FEELING ANGRY ABOUT THE HIS BROTHER'S ABOUT 2 YEARS AGO. SW PROVIDED PATIENT WITH MENTAL HEALTH RESOURCES AND EDUCATED PATIENT ON THE IMPORTANCE AND CONSISTENCY WITH THERAPY AND MEDICATION INTAKE. PATIENT DECLINED INFORMATION AND REPORTED HAVING MENTAL HEALTH SERVICES AND PROVIDERS;HOWEVER REFUSED TO GIVE ANY INFORMATION TO SW "STATED I DO HAVE A DOCTOR AND I AM TAKING MEDICATIONS BUT I WILL NOT TELL ANYONE ANYTHING ABOUT THAT " PER PATIENT HE HAS NO ISSUES GETTING HIS MEDICATION AND HAS NO DME AT HOME. PATIENT IS ABLE TO AMBULATE AND BE INDEPENDENT AT HIS HOME IN [place]" PATIENT ALSO REFUSED TO GIVE HIS ADDRESS, PHONE NUMBER, EMERGENCY CONTACTS. STATED " I AM NOT HOMELESS, I HAVE A HOME, FAMILY AND I WILL NOT TELL YOU ANYTHING, ALSO I DO NOT NEED RESOURCES MAN" SW ENDED THE MEETING DO TO PATIENT GETTING EASILY AGITATED, RN ATTEMPTED TO DRAWN BLOOD FROM PATIENT HE INITIALLY AGREED BUT THEN BECAME ANGRY AND PULL NEEDLE FROM OWN HAND AND REFUSED TO GIVE BLOOD. RN AND SW LEFT THE ROOM. PATIENT IS IN PSCHY PLACEMENT SEARCH AND WILL BE PLACED SOON A BED IS OPEN AND FACILITY WILL ACCEPT PATIENT. SW WILL FOLLOW UP NEEDED.
--- NOTE | 2021-04-13 12:07 | NUR ---
PT AMBULATED TO SHOWER WITH SITTER NEXT TO HIM
--- NOTE | 2021-04-13 12:55 | NUR ---
PT IS ASLEEP IN BED WITH NO ACUTE S/S OF DISTRESS
--- NOTE | 2021-04-13 13:47 | NUR ---
PT REFUSES TO KEEP TELE MONITOR ON.
--- NOTE | 2021-04-13 15:45 | NUR ---
PT REFUSED BLOOD DRAWL. BECAME AGITATED AND STARTED YELLING AT THE LAB PERSONNEL. PT REMOVED THE NEEDLE OUT AND TOSSED IT TOWARDS THE LAB PERSONNEL. ATTEMPTED TO DEESCALATE SITUATION. PT STATED IT HURT AND HE FEELS LIKE HE IS GETTING TRAUMATIZED BY THE HOSPITAL. EDUCATED PT ON IMPORTANCE OF BLOOD DRAWL AND PT STILL STATES HE REFUSED. NOTIFIED
--- NOTE | 2021-04-13 16:00 | NUR ---
PT REFUSED VITAL SIGNS
--- NOTE | 2021-04-13 16:31 | NUR ---
Spoke with Linda/ALDO. Received intake, information has been faxed to [facility] for review for placement. Will keep facility informed of any updates
--- NOTE | 2021-04-13 16:56 | NUR ---
PRN PAIN MEDICATION ADMINISTERED PER MD ORDER. PT TOLERATED ADMINISTRATION.
--- NOTE | 2021-04-13 18:16 | NUR ---
EDUCATED PT ON WHY HE DOES NOT HAVE HIS BELONGINGS DUE TO A 5150 HOLD.
--- NOTE | 2021-04-13 19:30 | NUR ---
PT ENDORSED TO LEARNING PROGRAM MANAGER NURSE FOR CONTINUITY OF CARE, POC DISCUSSED.
--- NOTE | 2021-04-13 19:30 | NUR ---
RECEIVED PATIENT FROM GONZALO VELAZCO FOR CONTINUITY OF CARE. PT SITTING UP AAOX4 WITH 1:1 SITTER AT BEDSIDE. NO APPARENT S/S OF ACUTE DISTRESS. BREATHING EVEN AND UNLABORED ON RA WITH 02 SAT OF 97%. NO C/O CP, SOB OR PAIN. L HAND 24G INTACT/PATENT. POC AND WHITE COMMUNICATION BOARD UPDATED. BED IN LOW/LOCKED POSITION. CALL LIGHT WITHIN REACH. PT/SITTER ENCOURAGED TO CALL FOR ANY NEEDS/ASSISTANCE. WILL CONTINUE TO MONITOR.
[2021-04-13 20:00] VITALS: BP 128/75
--- NOTE | 2021-04-13 21:03 | NUR ---
PATIENT REFUSED HEPARIN AND METOPROLOL AT THIS TIME. EDUCATED ON THE IMPORTANCE OF MEDICATION ADHERENCE, BUT CONTINUES TO REFUSE.
[2021-04-13] MEDS: traZODone 50 MG TAB PO SCH (21:55)
[2021-04-14] VITALS: BP 131/77
[2021-04-14 04:00] VITALS: BP 135/70
--- NOTE | 2021-04-14 07:00 | NUR ---
REPORT GIVEN TO MERCED VELAZCO FOR CONTINUITY OF CARE. PT SITTING UP AAOX4. NO APPARENT S/S OF ACUTE DISTRESS. BREATHING EVEN AND UNLABORED. BED IN LOW/LOCKED POSITION. CALL LIGHT WITHIN REACH. ALL NEEDS MET AT THIS TIME.
--- NOTE | 2021-04-14 07:10 | NUR ---
RECEIVED REPORT FROM BIBLIOGRAPHIC SERVICES SPECIALIST RN FOR CONTINUITY OF CARE. PATIENT IN BED SLEEPING AT THIS TIME. RESPIRATIONS ARE EVEN AND UNLABORED. NO SIGNS OF DISTRESS NOTED. CALL LIGHT WITHIN REACH. ALL SAFETY MEASURES IN PLACE. WILL CONTINUE TO MONITOR.
[2021-04-14 07:32] LABS: BASOPHILS % (AUTO) 0.8 % (0.0-2.0); EOSINOPHILS # (AUTO) 0.3 K/uL (0-0.4); EOSINOPHILS % (AUTO) 5.9 % (0.0-4.0); HEMATOCRIT 35.8 % (36-52); HEMOGLOBIN 11.8 g/dL (12.0-18.0); LYMPHOCYTES % (AUTO) 34.6 % (20.5-51.1); MEAN CORPUSCULAR HEMOGLOBIN 30 pg (27-31); MEAN CORPUSCULAR HGB CONC 33 g/dL (33-37); MEAN CORPUSCULAR VOLUME 92.3 fL (80-94); MONOCYTES # (AUTO) 0.5 K/uL (0.8-1.0); MONOCYTES % (AUTO) 8.5 % (1.7-9.3); NEUTROPHILS # (AUTO) 2.9 K/uL (1.8-7.7); NEUTROPHILS % (AUTO) 50.2 % (42.2-75.2); PLATELET COUNT (AUTO) 359 K/uL (140-450); RED BLOOD CELL COUNT(AUTO) 3.88 MIL/uL (4.20-6.10); RED CELL DISTRIBUTION WIDTH 14.3 % (11.6-13.7); WHITE BLOOD COUNT (AUTO) 5.8 K/uL (4.8-10.8)
[2021-04-14 07:52] LABS: ANION GAP 12.1 (8-16); CREATININE 0.8 mg/dL (0.6-1.3); POTASSIUM 4.1 mmol/L (3.5-5.1)
[2021-04-14 07:54] LABS: MAGNESIUM 2.2 mg/dL (1.8-2.4); PHOSPHORUS 4.9 mg/dL (2.5-4.9)
[2021-04-14 08:00] VITALS: BP 130/85
[2021-04-14] MEDS: METOPROLOL 25 MG TAB PO SCH ×2 (09:00→21:58)
[2021-04-14] MEDS: chlordiazePOXIDE 25 MG CAP PO SCH ×3 (09:05→17:23)
[2021-04-14] MEDS: FOLIC ACID 1 MG TAB PO SCH (09:05)
[2021-04-14] MEDS: lisinopriL 20 MG TAB PO SCH (09:06)
[2021-04-14] MEDS: DIVALPROEX 500 MG TABEC PO SCH ×2 (09:06→22:02)
[2021-04-14] MEDS: ECOTRIN 81 MG TABEC PO SCH (09:06)
[2021-04-14] MEDS: MULTIVITAMIN 1 TAB PO SCH (09:06)
[2021-04-14] MEDS: ATORVASTATIN 20 MG TAB PO SCH (09:07)
[2021-04-14] MEDS: hydroCHLOROthiazide 25 MG TAB PO SCH (09:07)
[2021-04-14] MEDS: THIAMINE 100 MG TAB PO SCH (09:07)
[2021-04-14] MEDS: MORPHINE SULFATE 2 MG/ML SYR IVP PRN ×3 (09:09→22:30)
--- NOTE | 2021-04-14 09:10 | NUR ---
ADMINISTERED SCHEDULED MEDICATIONS. PATIENT VERBALIZED UNDERSTANDING. PATIENT REFUSED HEPARIN AND METOPROLOL. PATIENT STILL REFUSED THESE MEDS AFTER EDUCATIONS. ALL SAFETY PRECAUTIONS IN PLACE.
--- NOTE | 2021-04-14 11:30 | NUR ---
PATIENT IS RESTING IN BED. NO S/S OF DISTRESS. NO COMPLAINTS OF PAIN. ALL SAFETY PRECAUTIONS IN PLACE.
--- NOTE | 2021-04-14 13:06 | NUR ---
04/14/21 RD INITIAL ASSESSMENT COMPLETED PLEASE REFER TO NUTRITION ASSESSMENT UNDER CARE ACTIVITY FOR ESTIMATED NUTRITIONAL NEEDS. 1. CONTINUE CARDIAC DIET TOLERATED 2. RD TO FOLLOW-UP 5-7 DAYS, LOW RISK REVIEWED BY EVIE OSBORNE RD
--- NOTE | 2021-04-14 13:30 | NUR ---
NEW IV LINE STARTED FOR PATIENT. IV IS NOW AT RIGHT HAND, 22G. IV IS DRY, PATENT, AND FLUSHING WELL.
[2021-04-14] MEDS: NACL 0.9% 1,000 ML IV SCH ×2 (14:12→22:20)
--- NOTE | 2021-04-14 15:40 | NUR ---
PATIENT IN BED RESTING AT THIS TIME. NO SIGNS OF DISTRESS NOTED. NO COMPLAINTS OF PAIN. WILL CONTINUE TO MONITOR. CALL LIGHT WITHIN REACH. ALL SAFETY MEASURES IN PLACE.
[2021-04-14 16:00] VITALS: BP 147/92
--- NOTE | 2021-04-14 18:55 | NUR ---
PATIENT PICKED UP BY RADIOLOGY FOR CT SCAN. SITTER ACCOMPANIED PATIENT.
--- NOTE | 2021-04-14 19:08 | NUR ---
PATIENT RETURNED FROM CT SCAN.
--- NOTE | 2021-04-14 19:15 | NUR ---
ENDORSED PATIENT TO AD TERMINAL MAKEUP OPERATOR NURSE FOR CONTINUITY OF CARE. PATIENT IS STABLE.
--- NOTE | 2021-04-14 19:20 | NUR ---
RECEIVED ENDORSEMENT FROM MORNING SHIFT REGARDING PATIENT'S JUSTINA. PATIENT IS STABLE. A&OX3. ABLE TO MAKE NEEDS KNOWN. DENIES PAIN 0/10. ON RA O2 SAT OF 97%. RESPIRATIONS EVEN AND UNLABORED. NO APPARENT S/SX OF ACUTE RESPIRATORY DISTRESS. IV 1V22G ON RHAND INTACT/PATENT WITH NS INFUSING AT 60 ML/HR. POC AND WHITE BOARD COMMUNICATION BOARD UPDATED. ALL SAFETY MEASURES IN PLACE. BED ON LOW/LOCK POSITION. CALL LIGHT WITHIN REACH. ENCOURAGED PATIENT TO USE CALL LIGHT FOR ANY NEEDS/ASSISTANCE. WILL CONTINUE TO MONITOR.
--- NOTE | 2021-04-14 20:00 | NUR ---
PATIENT WAS RECEIVED ALERT AND ORIENTED X 3-4, ABLE TO SPEAK HIS NEEDS, NO S/S OF DISTRESS AT THIS EVARISTO, DENIES ANY PAIN.
--- NOTE | 2021-04-14 21:00 | NUR ---
ALL DUE MEDICATIONS WERE GIVEN BY SCIENTIFIC LINGUIST, TOLERATED WELL BY THE PATIENT.
--- NOTE | 2021-04-14 21:20 | NUR ---
ANSWERED CALL LIGHT. PATIENT C/O OF SLEEP AID AND PAIN 6/10 IN CHEST AREA. WILL PREPARE AMBIEN ALONGSIDE SCHEDULED MEDICATIONS AND ENDORSE MORPHINE SULFATE TO RN.
--- NOTE | 2021-04-14 21:43 | NUR ---
Call center still awaiting for calls from any potential accepting facility , At this time there are no beds available will continue to look for placement .
[2021-04-14] MEDS: traZODone 50 MG TAB PO SCH (21:58)
--- NOTE | 2021-04-14 21:59 | NUR ---
ADMINISTERED ALL SCHEDULED MEDICATIONS PER MD ORDER AND ALSO ADMINISTERED PRN AMBIEN. WILL REASSESS IN AN HOUR. PATIENT REFUSED HEPARIN. ATTEMPTED 3 TIMES. EXPLAINED RISKS AND BENEFITS AND PATIENT VERBALIZED UNDERSTANDING. NO APPARENT S/SX OF ACUTE RESPIRATORY DISTRESS. CALL LIGHT WITHIN REACH. WILL CONTINUE TO MONITOR.
[2021-04-14] MEDS ORDERED: METOCLOPRAMIDE 10 MG/2 ML INJ VIAL IVP STA (22:56)
--- NOTE | 2021-04-14 22:59 | NUR ---
REASSESSED PATIENT FOR AMBIEN. STABLE AND AWAKE. RECOMMENDED NONPHARMACOLOGICAL INTERVENTIONS SUCH REPOSITIONING AND DIMMING LIGHTS.
[2021-04-14] MEDS ORDERED: PANTOPRAZOLE 40 MG INJ VIAL IVP SCH ×2 (23:12→23:20)
--- NOTE | 2021-04-14 23:20 | NUR ---
ANSWERED CALL LIGHT. PATIENT IS AWAKE AND STABLE. REQUESTED SNACKS. PROVIDED SANDWICH AND APPLE JUICE. NO APPARENT S/SX OF ACUTE RESPIRATORY DISTRESS. ALL SAFETY MEASURES IN PLACE. CALL LIGHT WITHIN REACH. WILL CONTINUE TO MONITOR.
--- NOTE | 2021-04-14 23:36 | NUR ---
DUE PROTONIX 40 MG IVP AND REGLAN 10 MG IVP X1 WAS GIVEN FOR HYPERACIDITY AND N/V RESPECTIVELY, TOLERATED WELL BY THE PATIENT
[2021-04-15] VITALS: BP 135/90
--- NOTE | 2021-04-15 | NUR ---
PATIENT WAS OBSERVED IN HIS BED ASLEEP, NO S/S OF DISTRESS.
--- NOTE | 2021-04-15 01:30 | NUR ---
ROUNDED ON PATIENT. STABLE AND SLEEPING COMFORTABLY ON SUPINE POSITION. BREATHING SYMMETRICAL. NO APPARENT S/SX OF ACUTE RESPIRATORY DISTRESS. ALL SAFETY MEASURES IN PLACE. CALL LIGHT WITHIN REACH. WILL CONTINUE TO MONITOR.
--- NOTE | 2021-04-15 02:00 | NUR ---
PATIENT WAS OBSERVED IN HIS BED ASLEEP, NO S/S OF DISTRESS.
--- NOTE | 2021-04-15 02:05 | NUR ---
PATIENT C/O OF REDNESS IN THE LOWER ABDOMEN AND UPPER THIGH REGION. MORA FUNG ASSESSED. NO WHEEZING OR SOB NOTED AT THIS TIME. PATIENT STATED "BENADRYL AND STEROIDS WORKED FOR ME IN THE PAST". MORA FUNG WILL PUT IN ORDER FOR BENADRYL. ALL SAFETY MEASURES IN PLACE. CALL LIGHT WITHIN REACH. WILL CONTINUE TO MONITOR.
--- NOTE | 2021-04-15 02:36 | NUR ---
PATIENT REFUSED THE IV NS HYDRATION, STATED KEEPS HIM FEELING COOL, HE WANTS TO BE WARM. RN EXPLAINED HE NEEDS HYDRATION FLUID PER MD ORDER, BUT PATIENT INSISTED HE WANTS IT OFF. RN TURNED OFF THE IV PUMP AND UNHOOKED THE PATIENT FROM IT.
--- NOTE | 2021-04-15 02:39 | NUR ---
STILL WAITING FOR DR. IRCHMOND TO REPLY/CALL BACK.
--- NOTE | 2021-04-15 04:05 | NUR ---
ROUNDED ON PATIENT. STABLE AND SLEEPING COMFORTABLY IN LEFT SIDE. BREATHING SYMMETRICAL. NO APPARENT S/SX OF ACUTE RESPIRATORY DISTRESS. ALL SAFETY MEASURES IN PLACE. CALL LIGHT WITHIN REACH. SITTER PRESENT. WILL CONTINUE TO MONITOR.
--- NOTE | 2021-04-15 05:00 | NUR ---
PATIENT WOKE UP ANGRY BANGING BATHROOM DOOR. DISAPPOINTED HE DID NOT GOT HIS BENADRYL, EXPLAINED TO THE PATIENT TH DOCTOR HAS NOT CALL BACK YET. RN CALLED THE SECURITY BECAUSE THE PATIENT WAS UNCONTROLLABLE. RN CALLED DR. RICHMOND WELL, ORDERED BENADRYL 25 MG PO X1, GIVEN TO THE PATIENT BY MOUTH PATIENT CALMED DOWN.
--- NOTE | 2021-04-15 05:19 | NUR ---
PATIENT AWOKE AND SCREAMED, "HELP ME!" ATTENDED TO HIS NEEDS. REQUESTED TO TURN ON LIGHTS. DEMEANOR IS ANGRY. PATIENT STATED "I GOTTA CALL MY FAMILY!". PATIENT GOT UP TO WASH HIS HANDS. PATIENT STATED "I GOTTA GET OUT OF THIS PLACE!" PATIENT SLAMMED DOORS LOUDLY AND MOVED BASIN WITH FORCE. ATTEMPTED TO HELP PATIENT AND STATED ANGRILY "DO NOT COME ANY CLOSER OR ELSE I WILL HIT YOU" ALERTED CHARGE NURSE. MORA FUNG CALLED SECURITY.
--- NOTE | 2021-04-15 05:23 | NUR ---
SECURITY ARRIVED TO UNIT AND ASSESSED PATIENT'S SITUATION. ADVISED SECURITY THAT PATIENT IS PENDING PSYCH FACILITY PLACEMENT. SECURITY IS CURRENTLY ATTENDING TO PATIENT'S NEEDS.
--- NOTE | 2021-04-15 06:02 | NUR ---
PATIENT REFUSED BLOOD WITHDRAWAL. EXECUTIVE PRODUCER INFORMED MORA FUNG.
--- NOTE | 2021-04-15 07:14 | NUR ---
ENDORSED PATIENT TO MORNING SHIFT REGARDING JUSTINA. PATIENT IS STABLE.
--- NOTE | 2021-04-15 07:22 | NUR ---
[facility] still working on placement. During previous shift packet was faxed to: Marilu Friend [facility]
--- NOTE | 2021-04-15 07:30 | NUR ---
RECEIVED ENDORSEMENT FROM FRESH MEAT GRADER REGARDING PATIENT'S JUSTINA. PATIENT IS STABLE. A&OX3. ABLE TO MAKE NEEDS KNOWN. DENIES PAIN 0/10. ON RA O2 SAT OF 97%. RESPIRATIONS EVEN AND UNLABORED. NO APPARENT S/SX OF ACUTE RESPIRATORY DISTRESS. IV 22G ON R HAND INTACT/PATENT WITH NS INFUSING AT 60 ML/HR. POC AND WHITE BOARD COMMUNICATION BOARD UPDATED. ALL SAFETY MEASURES IN PLACE. BED ON LOW/LOCK POSITION. CALL LIGHT WITHIN REACH. ENCOURAGED PATIENT TO USE CALL LIGHT FOR ANY NEEDS/ASSISTANCE.
--- NOTE | 2021-04-15 07:31 | NUR ---
RECEIVED ENDORSEMENT FROM MORNING SHIFT REGARDING PATIENT'S JUSTINA. PATIENT IS STABLE. A&OX3. ABLE TO MAKE NEEDS KNOWN. DENIES PAIN 0/10. ON RA O2 SAT OF 97%. RESPIRATIONS EVEN AND UNLABORED. NO APPARENT S/SX OF ACUTE RESPIRATORY DISTRESS. IV 22G ON R HAND INTACT/PATENT WITH NS INFUSING AT 60 ML/HR. POC AND WHITE BOARD COMMUNICATION BOARD UPDATED. ALL SAFETY MEASURES IN PLACE. BED ON LOW/LOCK POSITION. CALL LIGHT WITHIN REACH. ENCOURAGED PATIENT TO USE CALL LIGHT FOR ANY NEEDS/ASSISTANCE.
--- NOTE | 2021-04-15 07:52 | NUR ---
ALL REPORT WERE GIVEN TO INCOMING RN, TRANSFER FO CARE ENDORSED.
[2021-04-15 08:00] VITALS: BP 141/85
[2021-04-15] MEDS: DIVALPROEX 500 MG TABEC PO SCH (08:42)
[2021-04-15] MEDS: ATORVASTATIN 20 MG TAB PO SCH (08:42)
[2021-04-15] MEDS: METOPROLOL 25 MG TAB PO SCH ×2 (08:42→20:55)
[2021-04-15] MEDS: ECOTRIN 81 MG TABEC PO SCH (08:42)
[2021-04-15] MEDS: FOLIC ACID 1 MG TAB PO SCH (08:42)
[2021-04-15] MEDS: lisinopriL 20 MG TAB PO SCH (08:42)
[2021-04-15] MEDS: MULTIVITAMIN 1 TAB PO SCH (08:43)
[2021-04-15] MEDS: hydroCHLOROthiazide 25 MG TAB PO SCH (08:43)
[2021-04-15] MEDS: THIAMINE 100 MG TAB PO SCH (08:43)
[2021-04-15] MEDS: chlordiazePOXIDE 25 MG CAP PO SCH ×3 (08:43→17:13)
[2021-04-15] MEDS: MORPHINE SULFATE 2 MG/ML SYR IVP PRN ×3 (08:48→20:07)
[2021-04-15] MEDS ORDERED: MUPIROCIN CA NASAL 2% 1GM TUBE NS SCH (09:00)
--- NOTE | 2021-04-15 09:00 | NUR ---
PT IN BED NO SOD NOTED, PT COMPLAINS ABOUT PAIN GOT MEDICATED PRN ORDER, GOT MORNING MEDICATION TOLERATED WELL, PT REFUSE TO TAKE HEPARIN, PT WAS EDUCATED ABOUT THE IMPORTANCE OF TAKING THE HEPARIN PT VERBLIZE UNDERSTANDING BUT STILL REFUSING ALL SAFETY MEASURES ON PLACE CALLS LIGHT WITHIN REACH
[2021-04-15 09:15] LABS: HEMATOCRIT 36.9 % (36-52); HEMOGLOBIN 12.3 g/dL (12.0-18.0); MEAN CORPUSCULAR HEMOGLOBIN 30 pg (27-31); MEAN CORPUSCULAR HGB CONC 34 g/dL (33-37); MEAN CORPUSCULAR VOLUME 90.9 fL (80-94); PLATELET COUNT (AUTO) 356 K/uL (140-450); RED BLOOD CELL COUNT(AUTO) 4.06 MIL/uL (4.20-6.10); RED CELL DISTRIBUTION WIDTH 13.9 % (11.6-13.7); WHITE BLOOD COUNT (AUTO) 8.2 K/uL (4.8-10.8)
[2021-04-15 09:29] LABS: ANION GAP 13.5 (8-16); CARBON DIOXIDE 24.8 mmol/L (21-32); CREATININE 0.9 mg/dL (0.6-1.3); POTASSIUM 4.3 mmol/L (3.5-5.1)
[2021-04-15 09:38] LABS: EOSINOPHILS % (MANUAL) 4 % (0-4); LYMPHOCYTES % (MANUAL) 6 % (20-46); MONOCYTES % (MANUAL) 4 % (5-12)
[2021-04-15 09:52] LABS: MAGNESIUM 1.9 mg/dL (1.8-2.4)
--- NOTE | 2021-04-15 11:05 | NUR ---
PT IN BED NO SOD NOTED, PT HAS NO COMPLAINS ,PATIENT HAS A SETTER ALL SAFETY MEASURES ON PLACE CALLS LIGHT WITHIN REACH
--- NOTE | 2021-04-15 13:38 | NUR ---
PT IN BED NO SOD NOTED, PT HAS NO COMPLAINS , ALL SAFETY MEASURES ON PLACE CALLS LIGHT WITHIN REACH
--- NOTE | 2021-04-15 14:47 | NUR ---
TAI PLANNING ALDO CALL JASMINE [place].Haylee AT IN REQUEST FOR ASSISTANCE FOR PATIENT Reymundo DAVIS ALDO SPOKE TO NEISHA DISPATCHER WHO TOOK THE CALL AND STATED THAT SHE WILL BE SENDING P.D OFFICER TO [facility] TO MEET WITH PATIENT. ALDO THANKED HER AND ENDED THE CALL. Addendum: 04/15/21 at 1517 by Linda Vasquez CM ALDO SEND VIA FAX PATIENT'S CLINICAL INFORMATION TO BERNARD FROM [facility] AT .
--- NOTE | 2021-04-15 15:00 | NUR ---
PT IN BED NO SOD NOTED, PT HAS NO COMPLAINS , GOT CLEANED AND CHANGED , PT WAITING FOR [facility] PLACEMENT ALL SAFETY MEASURES ON PLACE CALLS LIGHT WITHIN REACH
--- NOTE | 2021-04-15 15:20 | NUR ---
JASMINE MUIR CAME AND RENEWED THE 5150. JAY WIRE WEAVER NOTIFIED.
[2021-04-15 16:00] VITALS: BP 136/72
--- NOTE | 2021-04-15 16:48 | NUR ---
PT IN BED NO SOD NOTED, PT HAS NO COMPLAINS , ALL SAFETY MEASURES ON PLACE CALLS LIGHT WITHIN REACH
--- NOTE | 2021-04-15 18:44 | NUR ---
Patient has been accepted to [facility]. [facility] [address] [facility] [place] [address] Patient is going to room - U 225 Accepting Physicians - Dr Melgar/ Dr Pantoja RN/Chele is aware Patient can be accepted on 2nd shift Patient lives in [place]. Upon discharge patient will have to find own transportation since we do not provide transportation to [place].
--- NOTE | 2021-04-15 18:58 | NUR ---
PT IN BED NO SOD NOTED, PT HAS NO COMPLAINS , PT WILL BE DISCHARGE TO [address] [place] [id number] [address] , DR ORTIZ AND DR HERRMANN, FULL REPORT GIVEN TO NURSE CARMITA, ALL QUESTIONS WERE ANSWERED PT WILL NEED TO PAY FOR HIS OWN TRANSPORTATION FROM [place] TO HIS HOME WHEN GETTING DISCHARGE, PATIENT MADE AWARE. [facility] ASKED TO SEND THE PATIENT AFTER 20:00 ALL SAFETY MEASURES ON PLACE CALLS LIGHT WITHIN REACH
--- NOTE | 2021-04-15 19:05 | NUR ---
CALLED [facility], SPOKE WITH [facility] ETA FOR FLOUR MIXER WILL BE AT 8PM SANTANA. PCS FORM FAXED TO [facility], CONFIRMATION ATTACHED TO PT'S CHART.
--- NOTE | 2021-04-15 19:10 | NUR ---
RECEIVED ENDORSEMENT FROM MORNING SHIFT REGARDING PATIENT'S JUSTINA. PATIENT IS STABLE. A&OX4. DENIES PAIN 0/10 . O2 SAT OF 98% ON RA. NO APPARENT S/SX OF ACUTE RESPIRATORY DISTRESS. SKIN WARM, CLEAN, AND DRY. PATIENT IS PLANNED DISCHARGE TO [facility]. DISCUSSED WITH PATIENT WITH TRANSFER PLAN. PATIENT VERBALIZED UNDERSTANDING. TRANSPORT ARRANGED BY CHARGE NURSE. WILL PREPARE DISCHARGE INSTRUCTIONS/PAPERS.
--- NOTE | 2021-04-15 19:10 | NUR ---
FULL REPORT GIVEN TO EARLY CHILDHOOD COORDINATOR NURSE
--- NOTE | 2021-04-15 19:55 | NUR ---
BP - 155/88, HR -73, OFFERED METOPROLOL BUT REFUSED, WITH IRRITABILITY. WANTS MORPHINE FOR PAIN. WILL MEDICATE PER MD ORDER.
[2021-04-15 20:05] VITALS: BP 153/88
--- NOTE | 2021-04-15 20:15 | NUR ---
REPORT GIVEN TO [facility] PERSONNEL. BELONGINGS GIVEN TO PATIENT AND CHANGED HIS GOWN INTO HIS OWN CLOTHES. IV SALINE LOCK TAKEN OUT. PATIENT SIGNED ALL DISCHARGE PAPERS.
--- NOTE | 2021-04-15 20:35 | NUR ---
VERBALIZED HE HAS NO CHEST PAIN, 0/10. STATED "I THINK IT MAYBE A MUSCLE PAIN."
--- NOTE | 2021-04-15 20:40 | NUR ---
TAKEN TO HOSPITAL LOBBY PARKING IN STABLE CONDITION VIA GURNEY ACCOMPANIED BY [facility] PERSONNEL FOR TRANSFER TO [facility].
== END 2021-04-15 20:40 | DRG 313 ==
LOC: MED 04:52 → MTU 09:39
DX: R07.9 Chest pain, unspecified (principal); E44.1 Mild protein-calorie malnutrition; E87.1 Hypo-osmolality and hyponatremia; F41.9 Anxiety disorder, unspecified; F31.9 Bipolar disorder, unspecified; I25.10 Atherosclerotic heart disease of native coronary artery without angina pectoris; E78.5 Hyperlipidemia, unspecified; G47.00 Insomnia, unspecified; E83.41 Hypermagnesemia; E66.9 Obesity, unspecified; Z20.822 Contact with and (suspected) exposure to COVID-19; I11.0 Hypertensive heart disease with heart failure; I50.9 Heart failure, unspecified; Z68.38 Body mass index [BMI] 38.0-38.9, adult; Z88.8 Allergy status to other drugs, medicaments and biological substances; Z90.49 Acquired absence of other specified parts of digestive tract
CPT/HCPCS: 36415; 71045; 71250; 80048; 80053; 80305; 81001; 83036; 83690; 83735; 83880; 84100; 84134; 84436; 84443; 84484; 85025; 85610; 85730; 87081; 93005; 96372; 99285; C9113; G0482; J1644; J2060; J2270; J2765; J3490; J8597; Q0092; Q0162; Q0163; U0003